=== PATIENT | female | born 1990 | race Caucasian/White ===

== ENCOUNTER 2016-04-17 22:23 | Emergency (ER) | payer OTHER ==
[~2016-04-17] VITALS: Ht 167.6 cm; Wt 64.7 kg
[2016-04-17] MEDS ORDERED: ONDANSETRON 4MG/2ML VIAL (J2405) As Ordered ONE (23:43)
[2016-04-17] MEDS ORDERED: MORPHINE 4 MG/ML 1ML SYRINGE As Ordered ONE (23:43)
[2016-04-17 23:57] LABS: BASO # 0.1 K/mm3 (0.0-0.2); BASO % 1.2 % (0.0-1.0); EOS # 0.1 K/mm3 (0.0-0.50); EOS % 1.4 % (0.0-3.0); LARGE UNSTAINED CELL # 0.1 K/mm3 (0.0-0.4); LARGE UNSTAINED CELL % 1.9 % (0.0-4.0); LYMPH # 3.1 K/mm3 (1.5-6.5); LYMPH % 40.7 % (24.0-44.0); MEAN CORPUSCULAR HEMOGLOBIN 30.2 pg (27.0-33.0); MEAN CORPUSCULAR HGB CONC 34.8 g/dl (32.0-36.5); MEAN CORPUSCULAR VOLUME 86.7 fl (80.0-96.0); MONO # 0.2 K/mm3 (0.0-0.8); NEUTROPHILS # 3.8 K/mm3 (1.8-7.7); NEUTROPHILS % 51.9 % (36.0-66.0); PLATELET COUNT, AUTOMATED 359 k/mm3 (150-450); RED CELL DISTRIBUTION WIDTH 12.6 % (11.5-14.5); WHITE BLOOD COUNT 7.4 K/mm3 (4.0-10.0)
[2016-04-18 00:22] LABS: ALBUMIN 4.1 GM/DL (3.2-5.2); ALBUMIN/GLOBULIN RATIO 1.17 (1.00-1.93); ALKALINE PHOSPHATASE 74 U/L (45-117); ALT/SGPT 41 U/L (12-78); ANION GAP 9 MEQ/L (8-16); AST/SGOT 63 U/L (15-37); BILIRUBIN,DIRECT < 0.1 MG/DL (0.0-0.2); BILIRUBIN,TOTAL 0.2 MG/DL (0.2-1.0); BLOOD UREA NITROGEN 10 MG/DL (7-18); CALCIUM LEVEL 8.1 MG/DL (8.5-10.1); CARBON DIOXIDE LEVEL 26 MEQ/L (21-32); CHLORIDE LEVEL 106 MEQ/L (98-107); CREATININE FOR GFR 0.86 MG/DL (0.55-1.02); GLOMERULAR FILTRATION RATE > 60.0 (>60); GLUCOSE, FASTING 95 MG/DL (70-105); SODIUM LEVEL 141 MEQ/L (136-145); TOTAL PROTEIN 7.6 GM/DL (6.4-8.2)
[2016-04-18] MEDS ORDERED: diphenhydrAMINE INJ 50MG/ML VIAL (J1200) As Ordered ONE (00:30)
[2016-04-18] MEDS ORDERED: MORPHINE 2 MG/ML 1ML SYRINGE As Ordered ONE (00:30)
--- NOTE | 2016-04-18 01:20 | REPUSA ---
Clinical statement: Pain. Findings: The liver demonstrates uniform echotexture and echogenicity, with no mass lesions. The gall bladder is unremarkable. The common bile duct measures 4 mm and is within normal limits. The pancreas demonstrates normal contour and appearance. The spleen is unremarkable. The right kidney measures 9. 6 cm in length and the left kidney measures 11.6 cm in length. There is no evidence of hydronephrosis or nephrolithiasis. The visualized portions of the aorta and inferior vena cava are within normal li mits. No ascites are seen. Impression: Unremarkable ultrasound examination of the abdomen.
[2016-04-18] MEDS ORDERED: METOCLOPRAMIDE INJ 10MG/2ML VIAL (J2765) As Ordered ONE (02:12)
[2016-04-18] MEDS ORDERED: LOVE1INJ2 SC (02:32)
[2016-04-18] MEDS ORDERED: PREN1TAB14 PO (02:32)
[2016-04-18] MEDS ORDERED: GI COCKTAIL 50ML BTL(HYOSCYAMINE/MAALOX/LIDOCAINE VISCOUS)(1:3:1) As Ordered ONE (02:40)
--- NOTE | 2016-04-18 03:21 | EDDOCDS ---
Physician Documentation [facility] Name: Nuria Licea Age: 26 yrs Sex: Female : 1990 Arrival Date: 04/17/2016 Time: 22:23 Bed I4 / M4 Private MD: Amber Bliss Disposition: 04/18/16 02:15 Hospitalization ordered by Damian Morales for Observation. Preliminary diagnosis are Abdominal and pelvic pain - epigastric, Nausea and vomiting, Rhabdomyolysis. - Bed requested for Shanna Post/Ante . - Status is Observation. cp1 - Condition is Stable. - Problem is new. - Symptoms are unchanged. Historical: - Allergies: SULFA (SULFONAMIDES) (Hives); Zithromax; - Home Meds: 1. Lovenox 30 mg/0.3 mL Sub-Q syrg once daily 2. Oral 1 tablet daily - PMHx: Anxiety; - PSHx: none; - Social history: Smoking status: Patient states former smoker of tobacco. No barriers to communication noted, The patient speaks fluent Japanese. - Family history: Not pertinent. - : The pt / caregiver states he / she is on anticoagulants: Lovenox. Home medication list is obtained from the patient. - Exposure Risk Screening:: None identified. 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 6 in. (167.64 cm) (R); Pain 9/10; 04/18 00:26 BP 135 / 66; Pulse 108; Resp 22; Temp 100.7(T); Pulse Ox 97% on R/A; Pain 10/10; cp1 01:39 BP 118 / 74; Pulse 104; Resp 18; Temp 98.8(O); Pulse Ox 98% on R/A; ld5 02:49 BP 107 / 59; Pulse 99; Resp 16; Temp 99(O); Pulse Ox 97% on R/A; Pain 7/10; ld5 04/17 22:26 Body Mass Index 23.02 (64.68 kg, 167.64 cm) kb5 MDM: 04/17 23:36 Ondansetron 4 mg IVP once ordered. cc10 23:36 IV Saline Lock ordered. cc10 23:36 Undress patient appropriately for examination ordered. cc10 23:36 morphine 4 mg IVP once ordered. cc10 23:37 Basic Metabolic Profile Ordered. EDMS 23:37 CBC with Diff Ordered. EDMS 23:37 Cardiac Injury Profile Ordered. EDMS 23:37 Lipase Ordered. EDMS 23:37 Liver Profile Ordered. EDMS 23:37 Troponin Ordered. EDMS 23:37 Urinalysis Ordered. EDMS 23:37 Hcg, Serum Quantitative Ordered. EDMS 23:37 Urine Culture Ordered. EDMS 23:38 NOTHING BY MOUTH+DIET ordered. EDMS 23:49 Financial registration complete. zo 23:50 [facility] [place] Payment Agreement was scanned into [employer] and attached to record. zo 04/18 00:18 Vital Signs ordered. cc10 00:18 CBC with Diff Reviewed. cc10 00:23 diphenhydrAMINE 25 mg IVP once ordered. cc10 00:24 morphine 2 mg IVP once ordered. cc10 00:26 US Abd complete Ordered. EDMS 01:03 Basic Metabolic Profile Reviewed. cc10 01:03 Cardiac Injury Profile Reviewed. cc10 01:03 Liver Profile Reviewed. cc10 01:03 Urinalysis Reviewed. cc10 01:03 Lipase Reviewed. cc10 01:03 Troponin Reviewed. cc10 01:03 Hcg, Serum Quantitative Reviewed. cc10 01:30 NS 0.9% 1000 ml IV at bolus once ordered. cc10 01:31 US Abd complete Reviewed. cc10 01:32 Vital Signs ordered. cc10 02:10 Metoclopramide 10 mg IV at 40 mg/hr once over 15 mins ordered. cc10 02:10 GI Cocktail - (Alum-Mag Hydroxide-Simeth 30 ml, Lidocaine 10 ml, Hyoscyamine 10 ml) PO cc10 once; Pre-mixed 50mL unit dose ordered. 02:17 BED REQUEST+ADM ordered. EDMS 02:32 MRI Screening Tool - Place on chart, inform RN ordered. cc10 02:41 Consents was scanned into [employer] and attached to record. cp1 02:44 MRI Screening Tool - Place on chart, inform RN complete. ld5 Administered Medications: 04/17 23:58 Drug: morphine 4 mg Route: IVP; Site: right antecubital; [facility] 23:59 Drug: Ondansetron 4 mg Route: IVP; Site: right antecubital; [facility] 04/18 00:36 Drug: diphenhydrAMINE 25 mg [diphenhydramine 50 mg/mL injection solution (0.5 mL)] [facility] Route: IVP; Site: left antecubital; 01:17 Follow up: Response: Pain is decreased [facility] 00:36 Drug: morphine 2 mg Route: IVP; Site: left antecubital; [facility] 01:17 Follow up: Response: Pain is decreased [facility] 01:39 Follow up: BP 118 / 74; Pulse 104 bpm; Resp 18 bpm; Temp 98.8 Oral; Pulse Ox 98% RA; ld5 Response: Confirmed pt not driving.; Pain is decreased 01:39 Drug: NS 0.9% 1000 ml [sodium chloride 0.9 % intravenous solution] Route: IV; Rate: ld5 bolus; Site: left antecubital; 02:58 Follow up: IV Status: Completed infusion; IV Intake: 1000ml ld5 02:16 Drug: Metoclopramide 10 mg [metoclopramide 5 mg/mL injection solution] Route: IV; Rate: ld5 40 mg/hr; Infused Over: 15 mins; Site: left antecubital; 02:44 Follow up: IV Status: Completed infusion ld5 02:44 Drug: GI Cocktail - (Alum-Mag Hydroxide-Simeth Suspension 225 mg-200 mg-25 mg/5 mL 30 ld5 ml, Lidocaine Liquid 2 % 10 ml, Hyoscyamine Liquid 10 ml) Route: PO; Signatures: Dispatcher [employer] Jess Gonzalez RN RN jan Peters, Mary, RN RN mcp Olin, Zoeann zo Perkins, Cheryl, LPN LPN cp1 Vidya Lim RN RN ld5 Suzi Tejeda RN RN [facility] Deyvi Tejeda, PA-C PAFreddieC cc10 The chart was reviewed and I authenticate all verbal orders and agree with the evaluation and treatment provided.Attachments: 04/17 23:50 [facility] Payment Agreement zo [email or web address]
--- NOTE | 2016-04-18 03:22 | EDDOCDS ---
Nurse's Notes [facility] Name: Nuria Licea Age: 26 yrs Sex: Female : 1990 Arrival Date: 04/17/2016 Time: 22:23 Bed I4 / M4 Private MD: Amber Bliss Diagnosis: Abdominal and pelvic pain-epigastric;Nausea and vomiting;Rhabdomyolysis Presentation: 04/17 22:33 Presenting complaint: Patient states: Upper abdominal pain for last 4 hours--has been mcp getting worse. Pt is 9 weeks . Risk factors: the patient reports no vaginal bleeding. Adult Sepsis Screening: The patient does not have new or worsening altered mentation. Patient's respiratory rate is less than 22. Systolic blood pressure is greater than 100. Patient has a qSOFA score of 0- Negative Sepsis Screen. Suicide/Homicide risk assessment- the patient denies having any suicidal and/or homicidal ideations and does not present with any other emotional, behavioral or mental health complaints. Status: The patient is a dependent. Transition of care: patient was not received from another setting of care. 22:33 Acuity: ALEKSANDR Level 3 [facility] 22:33 Method Of Arrival: Walkin/Carried/Asstd [facility] Triage Assessment: 22:35 General: Appears uncomfortable, Behavior is anxious, cooperative. Pain: Location: right mcp upper quadrant and left upper quadrant Pain currently is 9 out of 10 on a pain scale. HIV screening NA for this visit Offered previously. Neurological: No deficits noted. Respiratory: Airway is patent Respiratory effort is even, unlabored. GI: Reports upper abd pain, nausea, vomiting. Derm: Skin is pink, warm & dry. 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 Lovenox 30 mg/0.3 mL Sub-Q syrg once daily 2. Oral 1 tablet daily - PMHx: Anxiety; - PSHx: none; - Social history: Smoking status: Patient states former smoker of tobacco. No barriers to communication noted, The patient speaks fluent Sinhala. - Family history: Not pertinent. - : The pt / caregiver states he / she is on anticoagulants: Lovenox. Home medication list is obtained from the patient. - Exposure Risk Screening:: None identified. Screenin:36 Screening information is obtained from the patient. Fall risk: No risks identified. [facility] Assistance ADL's: requires no assistance with activities of daily living. Abuse/DV Screen: The patient / caregiver reports he/she is: not in a situation that causes fear, pain or injury. Nutritional screening: No deficits noted. Advance Directives: There is no active DNR order. home support is adequate. Assessment: 00:36 General: Appears uncomfortable, Behavior is crying. Pain: Location: epigastric area [facility] Pain currently is 10 out of 10 on a pain scale. Respiratory: Airway is patent Respiratory effort is even, unlabored, Respiratory pattern is regular, symmetrical. GI: Abdomen is non- distended Bowel sounds present X 4 quads. Abd is non tender X 4 quads. Derm: Skin is pink, warm & dry. 01:39 General: In to assess pt. Pt sleeping. Pt woken up to obtain vitals and start bolus. Pt ld5 started moaning and reports 8/10 pain. Provider made aware. 02:07 General: Dr. Morales in to assess pt. ld5 02:16 General: Pt dry heaving. Reglan infusion started. GI cocktail held until nausea has ld5 decreased. SO at bedside. Ice pack provided per request. Will continue to monitor. 02:44 General: Pt reports decreased nausea. Pt medicated with GI cocktail. Will monitor to ld5 assess pain level and tolerance. Pt aware of plan for admission. Will continue to monitor. Vital Signs: 04/17 22:26 BP 167 / 95; Pulse 135; Resp 24; Temp 97.1(O); Pulse Ox 99% on R/A; Weight 64.68 kg kb5 (M); Height 5 ft. 6 in. (167.64 cm) (R); Pain 9/10; 04/18 00:26 BP 135 / 66; Pulse 108; Resp 22; Temp 100.7(T); Pulse Ox 97% on R/A; Pain 10/10; cp1 01:39 BP 118 / 74; Pulse 104; Resp 18; Temp 98.8(O); Pulse Ox 98% on R/A; ld5 02:49 BP 107 / 59; Pulse 99; Resp 16; Temp 99(O); Pulse Ox 97% on R/A; Pain 7/10; ld5 04/17 22:26 Body Mass Index 23.02 (64.68 kg, 167.64 cm) kb5 ED Course: 04/17 22:26 Patient visited by Elia Stauffer PCA. kb5 22:26 Amber Bliss is Private Physician. kb5 22:26 Patient moved to Waiting kb5 22:29 Patient visited by Elia Stauffer PCA. kb5 22:34 Triage Initiated mcp 22:36 Patient visited by Nuria Morrison RN. mcp 22:36 Patient moved to Pre RCE mcp 23:14 Patient moved to Triage 1 cz 23:32 Deyvi Tejeda [facility] is [facility]. cc10 23:32 Mayank Eduardo DO is Attending Physician. cc10 23:32 Patient visited by Deyvi Tejeda PA-C. cc10 23:32 Patient visited by Deyvi Tejeda PA-C. cc10 23:35 Patient moved to I4 / M4 cz 23:50 [facility] Payment Agreement was scanned into [employer] and attached to record. zo 23:52 Inserted saline lock: 20 gauge in left antecubital area and blood collected. The rw1 patient tolerated the procedure well. 04/18 00:22 Patient visited by Josselyn Langston LPN. cp1 00:26 Urinalysis Sent. cp1 00:26 Urine Culture Sent. cp1 00:36 The patient / caregiver is instructed regarding the plan of care and ED course. [facility] Accompanied by Significant Other, Patient has correct armband on for positive identification. Placed in gown. Bed in low position. Call light in reach. Side rails up X 1. Cardiac monitoring not applicable on this patient. 00:46 Patient visited by Josselyn Langston LPN. cp1 01:17 Patient visited by Josselyn Langston LPN. cp1 01:28 US Abd complete Returned. EDMS 01:41 Patient visited by Vidya Lim RN. ld5 01:58 Patient visited by Josselyn Langston LPN. cp1 02:08 Patient visited by Vidya Lim RN. ld5 02:15 Damian Morales MD is Hospitalizing Provider. cc10 02:18 Patient visited by Vidya Lim RN. ld5 02:41 Consents was scanned into [employer] and attached to record. cp1 02:46 Patient visited by Vidya Lim RN. ld5 02:59 Patient visited by Vidya Lim RN. ld5 03:00 No procedures done that require assistance. cp1 Administered Medications: 04/17 23:58 Drug: morphine 4 mg Route: IVP; Site: right antecubital; [facility] 23:59 Drug: Ondansetron 4 mg Route: IVP; Site: right antecubital; [facility] 04/18 00:36 Drug: diphenhydrAMINE 25 mg [diphenhydramine 50 mg/mL injection solution (0.5 mL)] [facility] Route: IVP; Site: left antecubital; 01:17 Follow up: Response: Pain is decreased [facility] 00:36 Drug: morphine 2 mg Route: IVP; Site: left antecubital; [facility] 01:17 Follow up: Response: Pain is decreased [facility] 01:39 Follow up: BP 118 / 74; Pulse 104 bpm; Resp 18 bpm; Temp 98.8 Oral; Pulse Ox 98% RA; ld5 Response: Confirmed pt not driving.; Pain is decreased 01:39 Drug: NS 0.9% 1000 ml [sodium chloride 0.9 % intravenous solution] Route: IV; Rate: ld5 bolus; Site: left antecubital; 02:58 Follow up: IV Status: Completed infusion; IV Intake: 1000ml ld5 02:16 Drug: Metoclopramide 10 mg [metoclopramide 5 mg/mL injection solution] Route: IV; Rate: ld5 40 mg/hr; Infused Over: 15 mins; Site: left antecubital; 02:44 Follow up: IV Status: Completed infusion ld5 02:44 Drug: GI Cocktail - (Alum-Mag Hydroxide-Simeth Suspension 225 mg-200 mg-25 mg/5 mL 30 ld5 ml, Lidocaine Liquid 2 % 10 ml, Hyoscyamine Liquid 10 ml) Route: PO; Attachments: 04/18 02:41 Consents cp1 Intake: 02:58 IV: 1000.00ml; Total: 1000.00ml. ld5 Order Results: Lab Order: Basic Metabolic Profile; SPEC'M 04/17/16 23:50 Test: GLUCOSE, FASTING; Value: 95; Range: 70-105; Units: MG/DL; Status: F Test: BLOOD UREA NITROGEN; Value: 10; Range: 7-18; Units: MG/DL; Status: F Test: CREATININE FOR GFR; Value: 0.86; Range: 0.55-1.02; Units: MG/DL; Status: F Test: GLOMERULAR FILTRATION RATE; Value: > 60.0; Range: >60; Status: F Test: SODIUM LEVEL; Value: 141; Range: 136-145; Units: MEQ/L; Status: F Test: POTASSIUM SERUM; Value: 4.0; Range: 3.5-5.1; Units: MEQ/L; Status: F Test: CHLORIDE LEVEL; Value: 106; Range: 98-107; Units: MEQ/L; Status: F Test: CARBON DIOXIDE LEVEL; Value: 26; Range: 21-32; Units: MEQ/L; Status: F Test: ANION GAP; Value: 9; Range: 8-16; Units: MEQ/L; Status: F Test: CALCIUM LEVEL; Value: 8.1; Range: 8.5-10.1; Abnormal: Below low normal; Units: MG/DL; Status: F Test Note: ; Units are mL/min/1.73 m2 Chronic Kidney Disease Staging per NKF: Stage I & II GFR >=60 Normal to Mildly Decreased Stage III GFR 30-59 Moderately Decreased Stage IV GFR 15-29 Severely Decreased Stage V GFR <15 Very Little GFR Left ESRD GFR <15 on [employer]ENDANT Lab Order: CBC with Diff; SPEC'M 04/17/16 23:50 Test: WHITE BLOOD COUNT; Value: 7.4; Range: 4.0-10.0; Units: K/mm3; Status: F Test: RED BLOOD COUNT; Value: 4.46; Range: 4.00-5.40; Units: M/mm3; Status: F Test: HEMOGLOBIN; Value: 13.5; Range: 12.0-16.0; Units: g/dl; Status: F Test: HEMATOCRIT; Value: 38.7; Range: 36.0-47.0; Units: %; Status: F Test: MEAN CORPUSCULAR VOLUME; Value: 86.7; Range: 80.0-96.0; Units: fl; Status: F Test: MEAN CORPUSCULAR HEMOGLOBIN; Value: 30.2; Range: 27.0-33.0; Units: pg; Status: F Test: MEAN CORPUSCULAR HGB CONC; Value: 34.8; Range: 32.0-36.5; Units: g/dl; Status: F Test: RED CELL DISTRIBUTION WIDTH; Value: 12.6; Range: 11.5-14.5; Units: %; Status: F Test: PLATELET COUNT, AUTOMATED; Value: 359; Range: 150-450; Units: k/mm3; Status: F Test: NEUTROPHILS %; Value: 51.9; Range: 36.0-66.0; Units: %; Status: F Test: LYMPH %; Value: 40.7; Range: 24.0-44.0; Units: %; Status: F Test: MONO %; Value: 3.0; Range: 0.0-5.0; Units: %; Status: F Test: EOS %; Value: 1.4; Range: 0.0-3.0; Units: %; Status: F Test: BASO %; Value: 1.2; Range: 0.0-1.0; Abnormal: Above high normal; Units: %; Status: F Test: LARGE UNSTAINED CELL %; Value: 1.9; Range: 0.0-4.0; Units: %; Status: F Test: NEUTROPHILS #; Value: 3.8; Range: 1.8-7.7; Units: K/mm3; Status: F Test: LYMPH #; Value: 3.1; Range: 1.5-6.5; Units: K/mm3; Status: F Test: MONO #; Value: 0.2; Range: 0.0-0.8; Units: K/mm3; Status: F Test: EOS #; Value: 0.1; Range: 0.0-0.50; Units: K/mm3; Status: F Test: BASO #; Value: 0.1; Range: 0.0-0.2; Units: K/mm3; Status: F Test: LARGE UNSTAINED CELL #; Value: 0.1; Range: 0.0-0.4; Units: K/mm3; Status: F Lab Order: Cardiac Injury Profile; [facility]04/17[facility]16 23:50 Test: CPK CREATINE PHOSPHOKINASE; Value: 593; Range: 26-192; Abnormal: Above high normal; Units: U/L; Status: F Test: CK-MB VALUE MASS; Value: 1.1; Range: 0.0-3.6; Units: NG/ML; Status: F Test: MB/CK RELATIVE INDEX; Value: 0.18; Range: < OR =4; Status: F Test Note: ; DIAGNOSIS CRITERIA MMB ng/ml Relative Index (RI) NON-AMI < or = 5 N/A KULKARNI ZONE > 5 < or = 4 AMI > 5 > 4 Lab Order: Lipase; 04/17/16 23:50 Test: LIPASE; Value: 174; Range: 73-393; Units: U/L; Status: F Lab Order: Liver Profile; 04/17/16 23:50 Test: AST/SGOT; Value: 63; Range: 15-37; Abnormal: Above high normal; Units: U/L; Status: F Test: ALT/SGPT; Value: 41; Range: 12-78; Units: U/L; Status: F Test: ALKALINE PHOSPHATASE; Value: 74; Range: 45-117; Units: U/L; Status: F Test: BILIRUBIN,TOTAL; Value: 0.2; Range: 0.2-1.0; Units: MG/DL; Status: F Test: BILIRUBIN,DIRECT; Value: < 0.1; Range: 0.0-0.2; Units: MG/DL; Status: F Test: TOTAL PROTEIN; Value: 7.6; Range: 6.4-8.2; Units: GM/DL; Status: F Test: ALBUMIN; Value: 4.1; Range: 3.2-5.2; Units: GM/DL; Status: F Test: ALBUMIN/GLOBULIN RATIO; Value: 1.17; Range: 1.00-1.93; Status: F Lab Order: Troponin; 04/17/16 23:50 Test: TROPONIN I; Value: < 0.02; Range: < 0.10; Units: NG/ML; Status: F Test Note: ; Troponin I Reference Interval for [employer] LOCI: 99th Percentile= 0.00-0.045 ng/ml Risk Stratification: <= 0.10 ng/ml Decreased Risk for Adverse Clinical Events. 0.10-1.50 ng/ml Increased Risk for Adverse Clinical Events. Evaluation of additional criterion and/or repeat testing in 2-6 hours is suggested to rule out myocardial damage. >= 1.50 ng/ml Indicative of Myocardial Injury. Lab Order: Urinalysis; SPEC'M 04/18/16 00:26 Test: APPEARANCE, URINE; Value: CLEAR; Range: CLEAR; Status: F Test: COLOR, URINE; Value: STRAW; Range: YELLOW; Status: F Test: PH,URINE; Value: 7.0; Range: 5.0-9.0; Units: UNITS; Status: F Test: SPECIFIC GRAVITY URINE AUTO; Value: 1.005; Range: 1.002-1.035; Status: F Test: PROTEIN, URINE AUTO; Value: NEGATIVE; Range: NEGATIVE; Units: mg/dL; Status: F Test: GLUCOSE, URINE (UA) AUTO; Value: NEGATIVE; Range: NEGATIVE; Units: mg/dL; Status: F Test: KETONE, URINE AUTO; Value: NEGATIVE; Range: NEGATIVE; Units: mg/dL; Status: F Test: UROBILINOGEN, URINE AUTO; Value: 0.2; Range: 0.0-2.0; Units: mg/dL; Status: F Test: BILIRUBIN, URINE AUTO; Value: NEGATIVE; Range: NEGATIVE; Status: F Test: NITRITE, URINE AUTO; Value: NEGATIVE; Range: NEGATIVE; Status: F Test: LEUKOCYTE ESTERASE, URINE AUTO; Value: NEGATIVE; Range: NEGATIVE; Status: F Test: BLOOD, URINE BLOOD; Value: 1+; Range: NEGATIVE; Abnormal: Above high normal; Status: F Test: WBC, URINE AUTO; Value: 1; Range: 0-3; Units: /HPF; Status: F Test: RBC, URINE AUTO; Value: 3; Range: 0-3; Units: /HPF; Status: F Test: BACTERIA, URINE AUTO; Value: 1+; Range: NEGATIVE; Abnormal: Above high normal; Status: F Test: SQUAMOUS EPITHELIAL CELL UR AU; Value: 0; Range: 0-6; Units: /HPF; Status: F Test: MUCUS, URINE; Value: SMALL; Range: NEGATIVE; Status: F Test: HYALINE CAST, URINE AUTO; Value: 0; Range: 0-1; Units: /LPF; Status: F Lab Order: Hcg, Serum Quantitative; SPEC'M 04/17/16 23:50 Test: HCG, SERUM QUANTITATIVE; Value: 07281; Units: MIU/ML; Status: F Test Note: ; GESTATIONAL AGE APPROXIMATE HCG RANGE (MIU/ML) 0.2-1 WEEK 5-50 1-2 WEEKS 50-500 2-3 WEEKS 100-5,000 3-4 WEEKS 500-10,000 4-5 WEEKS 1,000-50,000 5-6 WEEKS 10,000-100,000 6-8 WEEKS 15,000-200,000 2-3 MONTHS 10,000-100,000 NON FEMALES LESS THAN 3.0 Patient samples may contain human heterophilic antibodies that could react with immunoassays to give falsely elevated or depressed results. This assay has been designed to minimize interference from heterophilic antibodies. Elevated hCG levels have also been associated with trophoblastic disease and nontrophoblastic neoplasms. The possibility of having these diseases should be considered before a diagnosis of is made. This test is not intended for use as a surrogate marker for aiding in the diagnosis or monitoring the treatment of cancer patients. [employer] [place] methodology. Radiology Order: US Abd complete Test: US Abd complete REASON FOR EXAMINATION: ;Abd. Pain - Generalized, Nn-focal Exam; ; Clinical statement: Pain.; Findings: The liver demonstrates uniform echotexture and echogenicity, with no mass lesions. The gall; bladder is unremarkable. The common bile duct measures 4 mm and is within normal limits. The pancreas; demonstrates normal contour and appearance. The spleen is unremarkable. The right kidney measures 9.; 6 cm in length and the left kidney measures 11.6 cm in length. There is no evidence of hydronephrosis; or nephrolithiasis. The visualized portions of the aorta and inferior vena cava are within normal li; mits. No ascites are seen.; Impression: Unremarkable ultrasound examination of the abdomen.; ; Outcome: 00:36 Ultrasound Study completed. [facility] 02:15 Decision to Hospitalize by Provider. cc10 03:00 Discharge Assessment: Patient awake, alert and oriented x 3. No cognitive and/or cp1 functional deficits noted. Patient verbalized understanding of disposition instructions. patient administered narcotics - yes. Patient was admitted to the hospital or transferred to another facility. The following High Risk Discharge criteria are identified: None. Admitted to L & D, accompanied by tech, with chart. Condition: stable. Property :Personal belongings accompany Pt. 03:21 Patient left the ED. cp1 Signatures: Dispatcher [employer] EDMS Nuria Morrison RN Alvarez Vera mcp, RN RN cz Bob Davis,SPEECH THERAPY TEACHER SPEECH THERAPY TEACHER rw1 Albina Sunshine Kristopher, JONO INSURANCE POLICY CLERK kb5 Josselyn Langston,SPEECH THERAPY TEACHER SPEECH THERAPY TEACHER cp1 Vidya LimRN BRENT ld5 Suzi TejedaRN BRENT [facility] Deyvi Tejeda, PA-C PA-C cc10 Corrections: (The following items were deleted from the chart) 04/17 22:35 22:33 Presenting complaint: Patient states: Upper abdominal pain for last 4 hours--has mcp been getting worse mcp MTDD
--- NOTE | 2016-04-21 10:30 | EDDOCDS ---
Nurse's Notes [facility] Name: Nuria Licea Age: 26 yrs Sex: Female : 1990 Arrival Date: 04/17/2016 Time: 22:23 Bed I4 / M4 Private MD: Amber Bliss Diagnosis: Abdominal and pelvic pain-epigastric;Nausea and vomiting;Rhabdomyolysis Presentation: 04/17 22:33 Presenting complaint: Patient states: Upper abdominal pain for last 4 hours--has been mcp getting worse. Pt is 9 weeks . Risk factors: the patient reports no vaginal bleeding. Adult Sepsis Screening: The patient does not have new or worsening altered mentation. Patient's respiratory rate is less than 22. Systolic blood pressure is greater than 100. Patient has a qSOFA score of 0- Negative Sepsis Screen. Suicide/Homicide risk assessment- the patient denies having any suicidal and/or homicidal ideations and does not present with any other emotional, behavioral or mental health complaints. Status: The patient is a dependent. Transition of care: patient was not received from another setting of care. 22:33 Acuity: ALEKSANDR Level 3 [facility] 22:33 Method Of Arrival: Walkin/Carried/Asstd [facility] Triage Assessment: 22:35 General: Appears uncomfortable, Behavior is anxious, cooperative. Pain: Location: right mcp upper quadrant and left upper quadrant Pain currently is 9 out of 10 on a pain scale. HIV screening NA for this visit Offered previously. Neurological: No deficits noted. Respiratory: Airway is patent Respiratory effort is even, unlabored. GI: Reports upper abd pain, nausea, vomiting. Derm: Skin is pink, warm & dry. 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 Lovenox 30 mg/0.3 mL Sub-Q syrg once daily 2. Oral 1 tablet daily - PMHx: Anxiety; - PSHx: none; - Social history: Smoking status: Patient states former smoker of tobacco. No barriers to communication noted, The patient speaks fluent Belarusian. - Family history: Not pertinent. - : The pt / caregiver states he / she is on anticoagulants: Lovenox. Home medication list is obtained from the patient. - Exposure Risk Screening:: None identified. Screenin:36 Screening information is obtained from the patient. Fall risk: No risks identified. [facility] Assistance ADL's: requires no assistance with activities of daily living. Abuse/DV Screen: The patient / caregiver reports he/she is: not in a situation that causes fear, pain or injury. Nutritional screening: No deficits noted. Advance Directives: There is no active DNR order. home support is adequate. Assessment: 00:36 General: Appears uncomfortable, Behavior is crying. Pain: Location: epigastric area [facility] Pain currently is 10 out of 10 on a pain scale. Respiratory: Airway is patent Respiratory effort is even, unlabored, Respiratory pattern is regular, symmetrical. GI: Abdomen is non- distended Bowel sounds present X 4 quads. Abd is non tender X 4 quads. Derm: Skin is pink, warm & dry. 01:39 General: In to assess pt. Pt sleeping. Pt woken up to obtain vitals and start bolus. Pt ld5 started moaning and reports 8/10 pain. Provider made aware. 02:07 General: Dr. Morales in to assess pt. ld5 02:16 General: Pt dry heaving. Reglan infusion started. GI cocktail held until nausea has ld5 decreased. SO at bedside. Ice pack provided per request. Will continue to monitor. 02:44 General: Pt reports decreased nausea. Pt medicated with GI cocktail. Will monitor to ld5 assess pain level and tolerance. Pt aware of plan for admission. Will continue to monitor. Vital Signs: 04/17 22:26 BP 167 / 95; Pulse 135; Resp 24; Temp 97.1(O); Pulse Ox 99% on R/A; Weight 64.68 kg kb5 (M); Height 5 ft. 6 in. (167.64 cm) (R); Pain 9/10; 04/18 00:26 BP 135 / 66; Pulse 108; Resp 22; Temp 100.7(T); Pulse Ox 97% on R/A; Pain 10/10; cp1 01:39 BP 118 / 74; Pulse 104; Resp 18; Temp 98.8(O); Pulse Ox 98% on R/A; ld5 02:49 BP 107 / 59; Pulse 99; Resp 16; Temp 99(O); Pulse Ox 97% on R/A; Pain 7/10; ld5 04/17 22:26 Body Mass Index 23.02 (64.68 kg, 167.64 cm) kb5 ED Course: 04/17 22:26 Patient visited by Elia Stauffer PCA. kb5 22:26 Amber Bliss is Private Physician. kb5 22:26 Patient moved to Waiting kb5 22:29 Patient visited by Elia Stauffer PCA. kb5 22:34 Triage Initiated mcp 22:36 Patient visited by Nuria Morrison RN. mcp 22:36 Patient moved to Pre RCE mcp 23:14 Patient moved to Triage 1 cz 23:32 [facility] cc10 23:32 Mayank Eduardo DO is Attending Physician. cc10 23:32 Patient visited by Deyvi Tejeda PA-C. cc10 23:32 Patient visited by Deyvi Tejeda PA-C. cc10 23:35 Patient moved to I4 / M4 cz 23:50 [facility] Payment Agreement was scanned into i[employer] and attached to record. zo 23:52 Inserted saline lock: 20 gauge in left antecubital area and blood collected. The rw1 patient tolerated the procedure well. 04/18 00:22 Patient visited by Josselyn Langston LPN. cp1 00:26 Urinalysis Sent. cp1 00:26 Urine Culture Sent. cp1 00:36 The patient / caregiver is instructed regarding the plan of care and ED course. [facility] Accompanied by Significant Other, Patient has correct armband on for positive identification. Placed in gown. Bed in low position. Call light in reach. Side rails up X 1. Cardiac monitoring not applicable on this patient. 00:46 Patient visited by Jsoselyn Langston LPN. cp1 01:17 Patient visited by Josselyn Langston LPN. cp1 01:28 US Abd complete Returned. EDMS 01:41 Patient visited by Vidya Lim RN. ld5 01:58 Patient visited by Josselyn Langston LPN. cp1 02:08 Patient visited by Vidya Lim RN. ld5 02:15 Damian Morales MD is Hospitalizing Provider. cc10 02:18 Patient visited by Vidya Lim RN. ld5 02:41 Consents was scanned into [employer] and attached to record. cp1 02:46 Patient visited by Vidya Lim RN. ld5 02:59 Patient visited by Vidya Lim RN. ld5 03:00 No procedures done that require assistance. cp1 09:00 T-Sheet-- Draft Copy was scanned into [employer] and attached to record. gb Administered Medications: 04/17 23:58 Drug: morphine 4 mg Route: IVP; Site: right antecubital; [facility] 23:59 Drug: Ondansetron 4 mg Route: IVP; Site: right antecubital; [facility] 04/18 00:36 Drug: diphenhydrAMINE 25 mg [diphenhydramine 50 mg/mL injection solution (0.5 mL)] [facility] Route: IVP; Site: left antecubital; 01:17 Follow up: Response: Pain is decreased 1 00:36 Drug: morphine 2 mg Route: IVP; Site: left antecubital; [facility] 01:17 Follow up: Response: Pain is decreased cp1 01:39 Follow up: BP 118 / 74; Pulse 104 bpm; Resp 18 bpm; Temp 98.8 Oral; Pulse Ox 98% RA; ld5 Response: Confirmed pt not driving.; Pain is decreased 01:39 Drug: NS 0.9% 1000 ml [sodium chloride 0.9 % intravenous solution] Route: IV; Rate: ld5 bolus; Site: left antecubital; 02:58 Follow up: IV Status: Completed infusion; IV Intake: 1000ml ld5 02:16 Drug: Metoclopramide 10 mg [metoclopramide 5 mg/mL injection solution] Route: IV; Rate: ld5 40 mg/hr; Infused Over: 15 mins; Site: left antecubital; 02:44 Follow up: IV Status: Completed infusion ld5 02:44 Drug: GI Cocktail - (Alum-Mag Hydroxide-Simeth Suspension 225 mg-200 mg-25 mg/5 mL 30 ld5 ml, Lidocaine Liquid 2 % 10 ml, Hyoscyamine Liquid 10 ml) Route: PO; Attachments: 04/18 02:41 Consents cp1 Intake: 02:58 IV: 1000.00ml; Total: 1000.00ml. ld5 Order Results: Lab Order: Basic Metabolic Profile; SPEC'M 04/17/16 23:50 Test: GLUCOSE, FASTING; Value: 95; Range: 70-105; Units: MG/DL; Status: F Test: BLOOD UREA NITROGEN; Value: 10; Range: 7-18; Units: MG/DL; Status: F Test: CREATININE FOR GFR; Value: 0.86; Range: 0.55-1.02; Units: MG/DL; Status: F Test: GLOMERULAR FILTRATION RATE; Value: > 60.0; Range: >60; Status: F Test: SODIUM LEVEL; Value: 141; Range: 136-145; Units: MEQ/L; Status: F Test: POTASSIUM SERUM; Value: 4.0; Range: 3.5-5.1; Units: MEQ/L; Status: F Test: CHLORIDE LEVEL; Value: 106; Range: 98-107; Units: MEQ/L; Status: F Test: CARBON DIOXIDE LEVEL; Value: 26; Range: 21-32; Units: MEQ/L; Status: F Test: ANION GAP; Value: 9; Range: 8-16; Units: MEQ/L; Status: F Test: CALCIUM LEVEL; Value: 8.1; Range: 8.5-10.1; Abnormal: Below low normal; Units: MG/DL; Status: F Test Note: ; Units are mL/min/1.73 m2 Chronic Kidney Disease Staging per NKF: Stage I & II GFR >=60 Normal to Mildly Decreased Stage III GFR 30-59 Moderately Decreased Stage IV GFR 15-29 Severely Decreased Stage V GFR <15 Very Little GFR Left ESRD GFR <15 on SOLID WASTE COLLECTOR Lab Order: CBC with Diff; SPEC'M 04/17/16 23:50 Test: WHITE BLOOD COUNT; Value: 7.4; Range: 4.0-10.0; Units: K/mm3; Status: F Test: RED BLOOD COUNT; Value: 4.46; Range: 4.00-5.40; Units: M/mm3; Status: F Test: HEMOGLOBIN; Value: 13.5; Range: 12.0-16.0; Units: g/dl; Status: F Test: HEMATOCRIT; Value: 38.7; Range: 36.0-47.0; Units: %; Status: F Test: MEAN CORPUSCULAR VOLUME; Value: 86.7; Range: 80.0-96.0; Units: fl; Status: F Test: MEAN CORPUSCULAR HEMOGLOBIN; Value: 30.2; Range: 27.0-33.0; Units: pg; Status: F Test: MEAN CORPUSCULAR HGB CONC; Value: 34.8; Range: 32.0-36.5; Units: g/dl; Status: F Test: RED CELL DISTRIBUTION WIDTH; Value: 12.6; Range: 11.5-14.5; Units: %; Status: F Test: PLATELET COUNT, AUTOMATED; Value: 359; Range: 150-450; Units: k/mm3; Status: F Test: NEUTROPHILS %; Value: 51.9; Range: 36.0-66.0; Units: %; Status: F Test: LYMPH %; Value: 40.7; Range: 24.0-44.0; Units: %; Status: F Test: MONO %; Value: 3.0; Range: 0.0-5.0; Units: %; Status: F Test: EOS %; Value: 1.4; Range: 0.0-3.0; Units: %; Status: F Test: BASO %; Value: 1.2; Range: 0.0-1.0; Abnormal: Above high normal; Units: %; Status: F Test: LARGE UNSTAINED CELL %; Value: 1.9; Range: 0.0-4.0; Units: %; Status: F Test: NEUTROPHILS #; Value: 3.8; Range: 1.8-7.7; Units: K/mm3; Status: F Test: LYMPH #; Value: 3.1; Range: 1.5-6.5; Units: K/mm3; Status: F Test: MONO #; Value: 0.2; Range: 0.0-0.8; Units: K/mm3; Status: F Test: EOS #; Value: 0.1; Range: 0.0-0.50; Units: K/mm3; Status: F Test: BASO #; Value: 0.1; Range: 0.0-0.2; Units: K/mm3; Status: F Test: LARGE UNSTAINED CELL #; Value: 0.1; Range: 0.0-0.4; Units: K/mm3; Status: F Lab Order: Cardiac Injury Profile; [facility] 04/17/16 23:50 Test: CPK CREATINE PHOSPHOKINASE; Value: 593; Range: 26-192; Abnormal: Above high normal; Units: U/L; Status: F Test: CK-MB VALUE MASS; Value: 1.1; Range: 0.0-3.6; Units: NG/ML; Status: F Test: MB/CK RELATIVE INDEX; Value: 0.18; Range: < OR =4; Status: F Test Note: ; DIAGNOSIS CRITERIA MMB ng/ml Relative Index (RI) NON-AMI < or = 5 N/A KULKARNI ZONE > 5 < or = 4 AMI > 5 > 4 Lab Order: Lipase; [facility] 04/17/16 23:50 Test: LIPASE; Value: 174; Range: 73-393; Units: U/L; Status: F Lab Order: Liver Profile; 04/17/16 23:50 Test: AST/SGOT; Value: 63; Range: 15-37; Abnormal: Above high normal; Units: U/L; Status: F Test: ALT/SGPT; Value: 41; Range: 12-78; Units: U/L; Status: F Test: ALKALINE PHOSPHATASE; Value: 74; Range: 45-117; Units: U/L; Status: F Test: BILIRUBIN,TOTAL; Value: 0.2; Range: 0.2-1.0; Units: MG/DL; Status: F Test: BILIRUBIN,DIRECT; Value: < 0.1; Range: 0.0-0.2; Units: MG/DL; Status: F Test: TOTAL PROTEIN; Value: 7.6; Range: 6.4-8.2; Units: GM/DL; Status: F Test: ALBUMIN; Value: 4.1; Range: 3.2-5.2; Units: GM/DL; Status: F Test: ALBUMIN/GLOBULIN RATIO; Value: 1.17; Range: 1.00-1.93; Status: F Lab Order: Troponin; [facility] 23:50 Test: TROPONIN I; Value: < 0.02; Range: < 0.10; Units: NG/ML; Status: F Test Note: ; Troponin I Reference Interval for [employer] LOCI: 99th Percentile= 0.00-0.045 ng/ml Risk Stratification: <= 0.10 ng/ml Decreased Risk for Adverse Clinical Events. 0.10-1.50 ng/ml Increased Risk for Adverse Clinical Events. Evaluation of additional criterion and/or repeat testing in 2-6 hours is suggested to rule out myocardial damage. >= 1.50 ng/ml Indicative of Myocardial Injury. Lab Order: Urinalysis; SPEC'M 04/18/16 00:26 Test: APPEARANCE, URINE; Value: CLEAR; Range: CLEAR; Status: F Test: COLOR, URINE; Value: STRAW; Range: YELLOW; Status: F Test: PH,URINE; Value: 7.0; Range: 5.0-9.0; Units: UNITS; Status: F Test: SPECIFIC GRAVITY URINE AUTO; Value: 1.005; Range: 1.002-1.035; Status: F Test: PROTEIN, URINE AUTO; Value: NEGATIVE; Range: NEGATIVE; Units: mg/dL; Status: F Test: GLUCOSE, URINE (UA) AUTO; Value: NEGATIVE; Range: NEGATIVE; Units: mg/dL; Status: F Test: KETONE, URINE AUTO; Value: NEGATIVE; Range: NEGATIVE; Units: mg/dL; Status: F Test: UROBILINOGEN, URINE AUTO; Value: 0.2; Range: 0.0-2.0; Units: mg/dL; Status: F Test: BILIRUBIN, URINE AUTO; Value: NEGATIVE; Range: NEGATIVE; Status: F Test: NITRITE, URINE AUTO; Value: NEGATIVE; Range: NEGATIVE; Status: F Test: LEUKOCYTE ESTERASE, URINE AUTO; Value: NEGATIVE; Range: NEGATIVE; Status: F Test: BLOOD, URINE BLOOD; Value: 1+; Range: NEGATIVE; Abnormal: Above high normal; Status: F Test: WBC, URINE AUTO; Value: 1; Range: 0-3; Units: /HPF; Status: F Test: RBC, URINE AUTO; Value: 3; Range: 0-3; Units: /HPF; Status: F Test: BACTERIA, URINE AUTO; Value: 1+; Range: NEGATIVE; Abnormal: Above high normal; Status: F Test: SQUAMOUS EPITHELIAL CELL UR AU; Value: 0; Range: 0-6; Units: /HPF; Status: F Test: MUCUS, URINE; Value: SMALL; Range: NEGATIVE; Status: F Test: HYALINE CAST, URINE AUTO; Value: 0; Range: 0-1; Units: /LPF; Status: F Lab Order: Urine Culture; SPEC'M 04/18/16 00:26 Test: URINE CULTURE; Value: URINE CULTURE RESULT NO GROWTH; Status: F Lab Order: Hcg, Serum Quantitative; SPEC'M 04/17/16 23:50 Test: HCG, SERUM QUANTITATIVE; Value: 93177; Units: MIU/ML; Status: F Test Note: ; GESTATIONAL AGE APPROXIMATE HCG RANGE (MIU/ML) 0.2-1 WEEK 5-50 1-2 WEEKS 50-500 2-3 WEEKS 100-5,000 3-4 WEEKS 500-10,000 4-5 WEEKS 1,000-50,000 5-6 WEEKS 10,000-100,000 6-8 WEEKS 15,000-200,000 2-3 MONTHS 10,000-100,000 NON FEMALES LESS THAN 3.0 Patient samples may contain human heterophilic antibodies that could react with immunoassays to give falsely elevated or depressed results. This assay has been designed to minimize interference from heterophilic antibodies. Elevated hCG levels have also been associated with trophoblastic disease and nontrophoblastic neoplasms. The possibility of having these diseases should be considered before a diagnosis of is made. This test is not intended for use as a surrogate marker for aiding in the diagnosis or monitoring the treatment of cancer patients. [employer] methodology. Radiology Order: US Abd complete Test: US Abd complete REASON FOR EXAMINATION: ;Abd. Pain - Generalized, Nn-focal Exam; ; Clinical statement: Pain.; Findings: The liver demonstrates uniform echotexture and echogenicity, with no mass lesions. The gall; bladder is unremarkable. The common bile duct measures 4 mm and is within normal limits. The pancreas; demonstrates normal contour and appearance. The spleen is unremarkable. The right kidney measures 9.; 6 cm in length and the left kidney measures 11.6 cm in length. There is no evidence of hydronephrosis; or nephrolithiasis. The visualized portions of the aorta and inferior vena cava are within normal li; mits. No ascites are seen.; Impression: Unremarkable ultrasound examination of the abdomen.; ; Outcome: 00:36 Ultrasound Study completed. [facility] 02:15 Decision to Hospitalize by Provider. cc10 03:00 Discharge Assessment: Patient awake, alert and oriented x 3. No cognitive and/or cp1 functional deficits noted. Patient verbalized understanding of disposition instructions. patient administered narcotics - yes. Patient was admitted to the hospital or transferred to another facility. The following High Risk Discharge criteria are identified: None. Admitted to L & D, accompanied by tech, with chart. Condition: stable. Property :Personal belongings accompany Pt. 03:21 Patient left the ED. cp1 Signatures: Dispatcher [employer] EDNuria Hernández RN Alvarez Vera mcp, RN RN cz Brooks, Tana, Reg Reg gb Bob Davis,CORPORATE COMMUNICATIONS ASSOCIATE CORPORATE COMMUNICATIONS ASSOCIATE rw1 Albina Sunshine Kristopher, CLERK ANALYST CLERK ANALYST kb5 Josselyn Langston,CORPORATE COMMUNICATIONS ASSOCIATE CORPORATE COMMUNICATIONS ASSOCIATE cp1 Vidya Lim RN RN ld5 Suzi TejedaRN RN [facility] Deyvi Tejeda, KALI PADutch cc10 Corrections: (The following items were deleted from the chart) 04/17 22:35 22:33 Presenting complaint: Patient states: Upper abdominal pain for last 4 hours--has mcp been getting worse mcp Chart Complete MTDD
--- NOTE | 2016-04-21 10:30 | EDDOCDS ---
Physician Documentation [facility] Name: Nuria Licea Age: 26 yrs Sex: Female : 1990 Arrival Date: 04/17/2016 Time: 22:23 Bed I4 / M4 Private MD: Amber Bliss Disposition: 04/18/16 02:15 Hospitalization ordered by Damian Morales for Observation. Preliminary diagnosis are Abdominal and pelvic pain - epigastric, Nausea and vomiting, Rhabdomyolysis. - Bed requested for Shanna Post/Ante . - Status is Observation. cp1 - Condition is Stable. - Problem is new. - Symptoms are unchanged. Historical: - Allergies: SULFA (SULFONAMIDES) (Hives); Zithromax; - Home Meds: 1. Lovenox 30 mg/0.3 mL Sub-Q syrg once daily 2. Oral 1 tablet daily - PMHx: Anxiety; - PSHx: none; - Social history: Smoking status: Patient states former smoker of tobacco. No barriers to communication noted, The patient speaks fluent Croatian. - Family history: Not pertinent. - : The pt / caregiver states he / she is on anticoagulants: Lovenox. Home medication list is obtained from the patient. - Exposure Risk Screening:: None identified. 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 6 in. (167.64 cm) (R); Pain 9/10; 04/18 00:26 BP 135 / 66; Pulse 108; Resp 22; Temp 100.7(T); Pulse Ox 97% on R/A; Pain 10/10; cp1 01:39 BP 118 / 74; Pulse 104; Resp 18; Temp 98.8(O); Pulse Ox 98% on R/A; ld5 02:49 BP 107 / 59; Pulse 99; Resp 16; Temp 99(O); Pulse Ox 97% on R/A; Pain 7/10; ld5 04/17 22:26 Body Mass Index 23.02 (64.68 kg, 167.64 cm) kb5 MDM: 04/17 23:36 Ondansetron 4 mg IVP once ordered. cc10 23:36 IV Saline Lock ordered. cc10 23:36 Undress patient appropriately for examination ordered. cc10 23:36 morphine 4 mg IVP once ordered. cc10 23:37 Basic Metabolic Profile Ordered. EDMS 23:37 CBC with Diff Ordered. EDMS 23:37 Cardiac Injury Profile Ordered. EDMS 23:37 Lipase Ordered. EDMS 23:37 Liver Profile Ordered. EDMS 23:37 Troponin Ordered. EDMS 23:37 Urinalysis Ordered. EDMS 23:37 Hcg, Serum Quantitative Ordered. EDMS 23:37 Urine Culture Ordered. EDMS 23:38 NOTHING BY MOUTH+DIET ordered. EDMS 23:49 Financial registration complete. zo 23:50 [facility] Payment Agreement was scanned into [employer] and attached to record. zo 04/18 00:18 Vital Signs ordered. cc10 00:18 CBC with Diff Reviewed. cc10 00:23 diphenhydrAMINE 25 mg IVP once ordered. cc10 00:24 morphine 2 mg IVP once ordered. cc10 00:26 US Abd complete Ordered. EDMS 01:03 Basic Metabolic Profile Reviewed. cc10 01:03 Cardiac Injury Profile Reviewed. cc10 01:03 Liver Profile Reviewed. cc10 01:03 Urinalysis Reviewed. cc10 01:03 Lipase Reviewed. cc10 01:03 Troponin Reviewed. cc10 01:03 Hcg, Serum Quantitative Reviewed. cc10 01:30 NS 0.9% 1000 ml IV at bolus once ordered. cc10 01:31 US Abd complete Reviewed. cc10 01:32 Vital Signs ordered. cc10 02:10 Metoclopramide 10 mg IV at 40 mg/hr once over 15 mins ordered. cc10 02:10 GI Cocktail - (Alum-Mag Hydroxide-Simeth 30 ml, Lidocaine 10 ml, Hyoscyamine 10 ml) PO cc10 once; Pre-mixed 50mL unit dose ordered. 02:17 BED REQUEST+ADM ordered. EDMS 02:32 MRI Screening Tool - Place on chart, inform RN ordered. cc10 02:41 Consents was scanned into [employer] and attached to record. cp1 02:44 MRI Screening Tool - Place on chart, inform RN complete. ld5 09:00 T-Sheet-- Draft Copy was scanned into [employer] and attached to record. gb Administered Medications: 04/17 23:58 Drug: morphine 4 mg Route: IVP; Site: right antecubital; [facility] 23:59 Drug: Ondansetron 4 mg Route: IVP; Site: right antecubital; [facility] 04/18 00:36 Drug: diphenhydrAMINE 25 mg [diphenhydramine 50 mg/mL injection solution (0.5 mL)] [facility] Route: IVP; Site: left antecubital; 01:17 Follow up: Response: Pain is decreased [facility] 00:36 Drug: morphine 2 mg Route: IVP; Site: left antecubital; [facility] 01:17 Follow up: Response: Pain is decreased cp1 01:39 Follow up: BP 118 / 74; Pulse 104 bpm; Resp 18 bpm; Temp 98.8 Oral; Pulse Ox 98% RA; ld5 Response: Confirmed pt not driving.; Pain is decreased 01:39 Drug: NS 0.9% 1000 ml [sodium chloride 0.9 % intravenous solution] Route: IV; Rate: ld5 bolus; Site: left antecubital; 02:58 Follow up: IV Status: Completed infusion; IV Intake: 1000ml ld5 02:16 Drug: Metoclopramide 10 mg [metoclopramide 5 mg/mL injection solution] Route: IV; Rate: ld5 40 mg/hr; Infused Over: 15 mins; Site: left antecubital; 02:44 Follow up: IV Status: Completed infusion ld5 02:44 Drug: GI Cocktail - (Alum-Mag Hydroxide-Simeth Suspension 225 mg-200 mg-25 mg/5 mL 30 ld5 ml, Lidocaine Liquid 2 % 10 ml, Hyoscyamine Liquid 10 ml) Route: PO; Signatures: Dispatcher [employer] EDJess Troy RN RN jan Peters, Mary, RN RN mcp Barnhardt, Gloria, Reg Reg gb Albina Sunshine Cheryl,BLUEPRINT PROCESSOR BLUEPRINT PROCESSOR cp1 Vidya Lim RN RN ld5 Suzi Tejeda RN RN [facility] Deyvi Tejeda PAFreddieC PA-C cc10 The chart was reviewed and I authenticate all verbal orders and agree with the evaluation and treatment provided.Attachments: 04/17 23:50 [facility] Payment Agreement zo 09:00 T-Sheet-- Draft Copy gb Chart Complete MTDD
--- NOTE | 2016-04-21 10:30 | EDDOCDS ---
Physician Documentation [facility] Name: Nuria Licea Age: 26 yrs Sex: Female : 1990 Arrival Date: 04/17/2016 Time: 22:23 Bed I4 / M4 Private MD: Amber Bliss Disposition: 04/18/16 02:15 Hospitalization ordered by Damina Morales for Observation. Preliminary diagnosis are Abdominal and pelvic pain - epigastric, Nausea and vomiting, Rhabdomyolysis. - Bed requested for Shanna Post/Ante . - Status is Observation. cp1 - Condition is Stable. - Problem is new. - Symptoms are unchanged. Historical: - Allergies: SULFA (SULFONAMIDES) (Hives); Zithromax; - Home Meds: 1. Lovenox 30 mg/0.3 mL Sub-Q syrg once daily 2. Oral 1 tablet daily - PMHx: Anxiety; - PSHx: none; - Social history: Smoking status: Patient states former smoker of tobacco. No barriers to communication noted, The patient speaks fluent Macedonian. - Family history: Not pertinent. - : The pt / caregiver states he / she is on anticoagulants: Lovenox. Home medication list is obtained from the patient. - Exposure Risk Screening:: None identified. AUTOMATIC HEMMER: 04/18 02:50 7, Full Term 0, Premature 0, 6, Living 0, LMP 02/16/2016, ld5 Verified, EDC 11/22/2016, Gestational age from LMP: 8 weeks 6 days Vital Signs: 04/17 22:26 BP 167 / 95; Pulse 135; Resp 24; Temp 97.1(O); Pulse Ox 99% on R/A; Weight 64.68 kg / kb5 142.59 lbs (M); Height 5 ft. 6 in. (167.64 cm) (R); Pain 9/10; 04/18 00:26 BP 135 / 66; Pulse 108; Resp 22; Temp 100.7(T); Pulse Ox 97% on R/A; Pain 10/10; cp1 01:39 BP 118 / 74; Pulse 104; Resp 18; Temp 98.8(O); Pulse Ox 98% on R/A; ld5 02:49 BP 107 / 59; Pulse 99; Resp 16; Temp 99(O); Pulse Ox 97% on R/A; Pain 7/10; ld5 04/17 22:26 Body Mass Index 23.02 (64.68 kg, 167.64 cm) kb5 MDM: 04/17 23:36 Ondansetron 4 mg IVP once ordered. cc10 23:36 IV Saline Lock ordered. cc10 23:36 Undress patient appropriately for examination ordered. cc10 23:36 morphine 4 mg IVP once ordered. cc10 23:37 Basic Metabolic Profile Ordered. EDMS 23:37 CBC with Diff Ordered. EDMS 23:37 Cardiac Injury Profile Ordered. EDMS 23:37 Lipase Ordered. EDMS 23:37 Liver Profile Ordered. EDMS 23:37 Troponin Ordered. EDMS 23:37 Urinalysis Ordered. EDMS 23:37 Hcg, Serum Quantitative Ordered. EDMS 23:37 Urine Culture Ordered. EDMS 23:38 NOTHING BY MOUTH+DIET ordered. EDMS 23:49 Financial registration complete. zo 23:50 [facility] Payment Agreement was scanned into [employer] and attached to record. zo 04/18 00:18 Vital Signs ordered. cc10 00:18 CBC with Diff Reviewed. cc10 00:23 diphenhydrAMINE 25 mg IVP once ordered. cc10 00:24 morphine 2 mg IVP once ordered. cc10 00:26 US Abd complete Ordered. EDMS 01:03 Basic Metabolic Profile Reviewed. cc10 01:03 Cardiac Injury Profile Reviewed. cc10 01:03 Liver Profile Reviewed. cc10 01:03 Urinalysis Reviewed. cc10 01:03 Lipase Reviewed. cc10 01:03 Troponin Reviewed. cc10 01:03 Hcg, Serum Quantitative Reviewed. cc10 01:30 NS 0.9% 1000 ml IV at bolus once ordered. cc10 01:31 US Abd complete Reviewed. cc10 01:32 Vital Signs ordered. cc10 02:10 Metoclopramide 10 mg IV at 40 mg/hr once over 15 mins ordered. cc10 02:10 GI Cocktail - (Alum-Mag Hydroxide-Simeth 30 ml, Lidocaine 10 ml, Hyoscyamine 10 ml) PO cc10 once; Pre-mixed 50mL unit dose ordered. 02:17 BED REQUEST+ADM ordered. EDMS 02:32 MRI Screening Tool - Place on chart, inform RN ordered. cc10 02:41 Consents was scanned into [employer] and attached to record. cp1 02:44 MRI Screening Tool - Place on chart, inform RN complete. ld5 09:00 T-Sheet-- Draft Copy was scanned into [employer] and attached to record. gb Administered Medications: 04/17 23:58 Drug: morphine 4 mg Route: IVP; Site: right antecubital; [facility] 23:59 Drug: Ondansetron 4 mg Route: IVP; Site: right antecubital; [facility] 04/18 00:36 Drug: diphenhydrAMINE 25 mg [diphenhydramine 50 mg/mL injection solution (0.5 mL)] [facility] Route: IVP; Site: left antecubital; 01:17 Follow up: Response: Pain is decreased [facility] 00:36 Drug: morphine 2 mg Route: IVP; Site: left antecubital; [facility] 01:17 Follow up: Response: Pain is decreased cp1 01:39 Follow up: BP 118 / 74; Pulse 104 bpm; Resp 18 bpm; Temp 98.8 Oral; Pulse Ox 98% RA; ld5 Response: Confirmed pt not driving.; Pain is decreased 01:39 Drug: NS 0.9% 1000 ml [sodium chloride 0.9 % intravenous solution] Route: IV; Rate: ld5 bolus; Site: left antecubital; 02:58 Follow up: IV Status: Completed infusion; IV Intake: 1000ml ld5 02:16 Drug: Metoclopramide 10 mg [metoclopramide 5 mg/mL injection solution] Route: IV; Rate: ld5 40 mg/hr; Infused Over: 15 mins; Site: left antecubital; 02:44 Follow up: IV Status: Completed infusion ld5 02:44 Drug: GI Cocktail - (Alum-Mag Hydroxide-Simeth Suspension 225 mg-200 mg-25 mg/5 mL 30 ld5 ml, Lidocaine Liquid 2 % 10 ml, Hyoscyamine Liquid 10 ml) Route: PO; Signatures: Dispatcher [employer] EDJess Troy RN RN jan Peters, Mary, RN RN mcp Barnhardt, Gloria, Reg Reg gb Albina Sunshine Cheryl,CURING PRESS OPERATOR CURING PRESS OPERATOR cp1 Vidya Lim RN RN ld5 Suzi Tejeda RN RN [facility] Deyvi Tejeda PAFreddieC PA-C cc10 The chart was reviewed and I authenticate all verbal orders and agree with the evaluation and treatment provided.Attachments: 04/17 23:50 [facility] Payment Agreement zo 09:00 T-Sheet-- Draft Copy gb Chart Complete MTDD
== END 2016-04-18 03:21 | disposition home or self-care (01) ==
LOC: M ED 22:23
DX: R10.84 Generalized abdominal pain (principal); R11.2 Nausea with vomiting, unspecified; F41.9 Anxiety disorder, unspecified; Z87.891 Personal history of nicotine dependence; Z79.01 Long term (current) use of anticoagulants; Z79.4 Long term (current) use of insulin; Z79.899 Other long term (current) drug therapy; Z88.2 Allergy status to sulfonamides; Z88.1 Allergy status to other antibiotic agents
CPT/HCPCS: 36415; 76700; 80048; 80076; 81001; 82550; 82553; 83690; 84702; 85025; 87086; 96361; 96374; 96375; 96376; 99285; J1200; J2405; J2765

== ENCOUNTER 2016-04-18 03:29 | Inpatient (IN) | payer OTHER ==
[~2016-04-18] VITALS: Ht 167.6 cm; Wt 64.7 kg
--- NOTE | 2016-04-18 03:01 | HPE ---
DATE OF ADMISSION: 04/18/2016 HISTORY: 26-year-old, (G) 7, para (P) 0 female at 9 weeks gestation by last menstrual period (LMP) presents with gradual onset of severe upper abdominal pain, which started on the evening of admission. The pain is 10/10 in severity. It is associated with extreme nausea and vomiting to the point where the patient was retching. She has had morning sickness for approximately the last 3 weeks on and off. She noted no morning sickness earlier in the day; however, when the pain started her nausea returned. She ate two meals earlier in the day prior to admission. She denies fevers. She has had occasional diarrhea. MEDICAL HISTORY: Anxiety. SURGICAL HISTORY: None. ALLERGIES: SULFA and ZITHROMAX. MEDICATIONS: - Lovenox 30 mg subcutaneously daily - vitamins SOCIAL HISTORY: The patient denies cigarettes, alcohol or drug use during . Father of the baby is supportive. PHYSICAL EXAMINATION: VITAL SIGNS: Blood pressure 167/95, pulse 135, respiratory rate 24, temperature 97.0. Maximum temperature (T-max) 100.7. Oxygen saturation 99% on room air. Weight 64 kg. The patient appears in significant pain. HEAD/NECK: Examination is normal. LUNGS: Clear. HEART: Regular rate and rhythm. ABDOMEN: Exquisitely tender in the upper abdomen with guarding present. No rebound. There are normal bowel sounds. PELVIC: Exam deferred. EXTREMITIES: Nontender. She has no costovertebral angle (CVA) tenderness. LABORATORIES: White blood count 7.4, creatinine 0.86. CPK 593. Hemoglobin 13.5 g/dL. Abdominal ultrasound normal gallbladder, normal liver and upper abdomen. ASSESSMENT: 26-year-old (G) 7, para (P) 0 female at 9 weeks gestation with severe upper abdominal pain and nausea, vomiting. Etiology of the pain is unclear. May be a component of hyperemesis. Patient will be admitted for intravenous (IV) hydration, as well as management of nausea and pain. Consideration given to imaging to rule out appendicitis as soon as this is feasible.
[~2016-04-18 03:29] MED LIST: LOVE1INJ2 SC; PREN1TAB14 PO
[2016-04-18 03:41] VITALS: BP 125/77
[2016-04-18] MEDS: LR 1,000 ML IV SCH ×2 (04:25→12:47)
[2016-04-18 06:36] VITALS: BP 119/78
--- NOTE | 2016-04-18 12:14 | REP ---
MRI study of the abdomen and pelvis without IV contrast: History: Abdominal pain question appendicitis. Comparison sonography showed no abnormality. Technique: Axial and coronal T1 and T2-weighted scans were obtained. Sequences include true FISP, spin echo, fat sat spin-echo, at T2 HASTE and turbo spin echo sequences. MRI findings: A single intrauterine gestation is seen in the gravid uterus. There is a septated cystic area in the right ovary consistent with corpus luteum measuring 4.6 cm in greatest diameter. This displays increased T1 and some decreased T2-weighted scans consistent with hemorrhagic corpus luteum. There is no evidence of pelvic or abdominal ascites. No hydronephrosis is seen on either side. No filling defect is noted in the gallbladder on T2-weighted scans to suggest biliary calculus. No liver or spleen lesion is observed. There is no evidence of adrenal lesion. The small and large bowel loops are unremarkable in the abdomen and pelvis. No pancreatic abnormality is observed. No retroperitoneal mass or adenopathy is seen. No evidence of pleural effusion. A normal non-inflamed appendix is believed to be visible in the central pelvis to the right of midline adjacent to the iliac vessels. There is no MR evidence of appendicitis. Impression: 4.5 cm hemorrhagic corpus luteum right ovary. No MR evidence to suggest appendicitis. No other acute intra-abdominal abnormality. No evidence of hydronephrosis. Signed by Rigo Ibanez MD 04/18/2016 02:06 P
[2016-04-18] MEDS: ONDANSETRON 4MG/2ML VIAL (J2405) IV PRN ×3 (12:46→21:42)
[2016-04-18] MEDS: MORPHINE 10 MG/ML 1ML VIAL IV PRN ×3 (12:46→18:43)
[2016-04-18 14:00] VITALS: BP 132/78
[2016-04-18] MEDS ORDERED: PROMETHAZINE INJ 25 MG/ML VIAL (J2550) IV PRN (18:00)
[2016-04-18] MEDS: KCL 20MEQ IN D5/0.45NS 1000ML 1,000 ML IV SCH (18:43)
[2016-04-18 19:00] VITALS: BP 160/80
[2016-04-18 19:40] VITALS: BP 174/99
[2016-04-18 19:50] VITALS: BP 162/104
[2016-04-18] MEDS: OMEPRAZOLE 20 MG CAP PO SCH (20:37)
[2016-04-18] MEDS ORDERED: FAMOTIDINE 20 MG TAB PO SCH (21:00)
[2016-04-18] MEDS ORDERED: ENOXAPARIN 30 MG/0.3 ML SYR (J1650) SC SCH (21:00)
[2016-04-18] MEDS: MORPHINE 4 MG/ML 1ML SYRINGE IV PRN (21:44)
[2016-04-19] VITALS: BP 158/100
[2016-04-19] MEDS: MORPHINE 4 MG/ML 1ML SYRINGE IV PRN (00:43)
[2016-04-19] MEDS: METOCLOPRAMIDE INJ 10MG/2ML VIAL (J2765) IV PRN ×3 (01:00→17:10)
[2016-04-19] MEDS: KCL 20MEQ IN D5/0.45NS 1000ML 1,000 ML IV SCH ×3 (02:34→18:25)
[2016-04-19 07:13] LABS: BASO % 0.5 % (0.0-1.0); EOS # 0.2 K/mm3 (0.0-0.50); EOS % 4.1 % (0.0-3.0); LARGE UNSTAINED CELL # 0.1 K/mm3 (0.0-0.4); LARGE UNSTAINED CELL % 2.3 % (0.0-4.0); LYMPH # 2.1 K/mm3 (1.5-6.5); LYMPH % 50.4 % (24.0-44.0); MEAN CORPUSCULAR HEMOGLOBIN 31.2 pg (27.0-33.0); MEAN CORPUSCULAR HGB CONC 35.1 g/dl (32.0-36.5); MEAN CORPUSCULAR VOLUME 88.9 fl (80.0-96.0); MONO # 0.2 K/mm3 (0.0-0.8); MONO % 4.1 % (0.0-5.0); NEUTROPHILS # 1.6 K/mm3 (1.8-7.7); NEUTROPHILS % 38.6 % (36.0-66.0); PLATELET COUNT, AUTOMATED 257 k/mm3 (150-450); RED CELL DISTRIBUTION WIDTH 11.8 % (11.5-14.5); WHITE BLOOD COUNT 4.2 K/mm3 (4.0-10.0)
[2016-04-19 07:26] LABS: ALBUMIN 3.3 GM/DL (3.2-5.2); ALBUMIN/GLOBULIN RATIO 1.14 (1.00-1.93); ALKALINE PHOSPHATASE 64 U/L (45-117); ALT/SGPT 36 U/L (12-78); ANION GAP 10 MEQ/L (8-16); AST/SGOT 46 U/L (15-37); BILIRUBIN,TOTAL 0.6 MG/DL (0.2-1.0); BLOOD UREA NITROGEN 4 MG/DL (7-18); CALCIUM LEVEL 8.3 MG/DL (8.5-10.1); CARBON DIOXIDE LEVEL 22 MEQ/L (21-32); CHLORIDE LEVEL 105 MEQ/L (98-107); CREATININE FOR GFR 0.65 MG/DL (0.55-1.02); GLOMERULAR FILTRATION RATE > 60.0 (>60); GLUCOSE, FASTING 97 MG/DL (70-105); POTASSIUM SERUM 3.7 MEQ/L (3.5-5.1); SODIUM LEVEL 137 MEQ/L (136-145); TOTAL PROTEIN 6.2 GM/DL (6.4-8.2)
[2016-04-19 08:00] VITALS: BP 170/113
[2016-04-19] MEDS: OMEPRAZOLE 20 MG CAP PO SCH ×2 (09:12→21:02)
[2016-04-19] MEDS: ACETAMINOPHEN 500 MG TAB PO PRN ×2 (09:22→17:11)
[2016-04-19] MEDS: LABETALOL 100 MG TAB PO SCH ×2 (10:46→21:02)
[2016-04-19] MEDS: SUCRALFATE SUSP 1GM/10ML UD PO SCH ×2 (12:19→18:24)
[2016-04-19 16:00] VITALS: BP 123/81
[2016-04-19 19:40] VITALS: BP 142/93
[2016-04-19 21:00] VITALS: BP 132/91
[2016-04-20] VITALS: BP 127/80
[2016-04-20] MEDS: SUCRALFATE SUSP 1GM/10ML UD PO SCH ×2 (00:01→06:07)
[2016-04-20] MEDS: KCL 20MEQ IN D5/0.45NS 1000ML 1,000 ML IV SCH ×2 (01:46→09:18)
[2016-04-20 08:15] VITALS: BP 127/80
[2016-04-20 09:10] VITALS: BP 127/80
[2016-04-20] MEDS: OMEPRAZOLE 20 MG CAP PO SCH (09:10)
[2016-04-20] MEDS: LABETALOL 100 MG TAB PO SCH (09:10)
[2016-04-20] MEDS ORDERED: LABE10TAB PO (10:33)
[2016-04-20] MEDS ORDERED: ZOFR20TA PO (10:33)
[2016-04-20] MEDS ORDERED: PRIL40CA PO (10:33)
[2016-04-20] MEDS ORDERED: TYLE500T78 PO (10:33)
--- NOTE | 2016-05-04 10:15 | DSES ---
DATE OF ADMISSION: 04/18/2016 DATE OF DISCHARGE: 04/20/2016 26-year-old G7, P0 female at 9 weeks gestation presents with gradual to severe upper abdominal pain which started the evening of admission. Pain was 10 out of 10 in severity. It was associated with extreme nausea and vomiting to the point where the patient was retching. She also had morning sickness on and off for the last 3 weeks, however, had no morning sickness or earlier in the day. HOSPITAL COURSE: Patient was admitted on 04/18/2016 with intractable nausea and vomiting and upper abdominal pain. She received IV hydration, antiemetics, she received Prilosec as well as sucralfate for possible peptic ulcer disease. During the course of hospitalization, her pain improved. She had imaging consisting of an MRI to rule out appendicitis which was negative. Electrolytes continued to be stable. On hospital day #3, she was able to tolerate small amounts of solid food as well as liquids with minimal nausea and no pain. She was deemed stable for discharge on day #3. ADMISSION DIAGNOSES: 9 weeks. Hyperemesis. Possible peptic ulcer disease. DISCHARGE DIAGNOSES: 9 weeks. Hyperemesis. Possible peptic ulcer disease. DISPOSITION: Patient will followup with Dr. Morales in 1 week. Patient will continue Prilosec, was given dietary restrictions.
== END 2016-04-20 11:50 | disposition home or self-care (01) | DRG 781 ==
LOC: M LDO 03:29 → M PED 18:10 → M LDO 18:42
PROVIDERS: ADMIT Advanced Practice Midwife; ATTEND Specialist
DX: O21.0 Mild hyperemesis gravidarum (principal); Z3A.09 9 weeks gestation of pregnancy; O99.611 Diseases of the digestive system complicating pregnancy, first trimester; K27.9 Peptic ulcer, site unspecified, unspecified as acute or chronic, without hemorrhage or perforation

== ENCOUNTER → 2016-06-02 | Day surgery (SDC) | payer OTHER ==
[~2016-06-02] VITALS: Ht 167.6 cm; Wt 66.0 kg
[~2016-06-02] MED LIST changes: +ACETAMINOPHEN 500 MG TAB PO PRN; +KETOROLAC 60 MG/2 ML VIAL (J1885) As Ordered ONE; +LABE10TAB PO; +LIDOCAINE 1% SDV INJ 30 ML VIAL As Ordered ONE; +LIDOCAINE 2% INJ 100 MG/5 ML SYRINGE As Ordered ONE; +LR 1,000 ML IV SCH; +MEPERIDINE INJ 25 MG/ML VIAL (J2175) IV PRN; +METHYLERGONOVINE MALEATE 0.2 MG/ML VIAL (J2210) As Ordered ONE; +METHYLERGONOVINE MALEATE 0.2 MG/ML VIAL (J2210) IV ONE; +METOCLOPRAMIDE INJ 10MG/2ML VIAL (J2765) IV PRN; +MIDAZOLAM INJ 2 MG/2 ML VIAL (J2250) As Ordered ONE; +ONDANSETRON 4MG/2ML VIAL (J2405) As Ordered ONE; +ONDANSETRON 4MG/2ML VIAL (J2405) IV PRN; +OXYC1TAB23 PO; +OXYTOCIN 30 UNITS IN 0.9% NaCl 500ML IV BAG (J2590) As Ordered ONE; +OXYTOCIN INJ 10 UNITS/ML VIAL (J2590) As Ordered ONE; +PRIL40CA PO; +PROPOFOL 200 MG/20 ML VIAL As Ordered ONE; +TYLE500T78 PO; +ZOFR20TA PO; +ceFAZolin 1GM INJ (J0690) As Ordered ONE; +ceFAZolin SOD 1 GM in D5W MINI-BAG PLUS 50 ML IV ONE; +ePHEDrine SULFATE 25 MG/5 ML(5MG/ML) SYRINGE As Ordered ONE; +fentaNYL 100 MCG/2 ML INJECTION (J3010) As Ordered ONE; +miSOPROStol 200 MCG TAB (S0191) As Ordered ONE
[2016-06-02 14:10] LABS: MEAN CORPUSCULAR HEMOGLOBIN 31.9 pg (27.0-33.0); MEAN CORPUSCULAR HGB CONC 35.3 g/dl (32.0-36.5); MEAN CORPUSCULAR VOLUME 90.4 fl (80.0-96.0); RED CELL DISTRIBUTION WIDTH 12.5 % (11.5-14.5); WHITE BLOOD COUNT 12.2 K/mm3 (4.0-10.0)
[2016-06-02] MEDS: miSOPROStol 200 MCG TAB (S0191) PR ONE ×2 (17:27→18:15)
[2016-06-02] MEDS: fentaNYL 100 MCG/2 ML INJECTION (J3010) IV PRN ×4 (18:05→18:20)
[2016-06-02] MEDS: PERCOCET 5MG/325MG TAB PO PRN ×2 (18:10→18:30)
[2016-06-02 20:30] VITALS: BP 108/85
--- NOTE | 2016-06-03 08:59 | RO ---
DATE OF PROCEDURE: 06/02/2016 PREPROCEDURE DIAGNOSIS: 15 and 2/7 weeks gestation, spontaneous rupture of membranes. POSTPROCEDURE DIAGNOSIS: 15 and 2/7 weeks gestation, spontaneous rupture of membranes. PROCEDURE: Dilatation and evacuation under ultrasound guidance. SURGEON: Damian Morales MD PROJECT PRODUCTION ENGINEER: ANESTHESIA: General endotracheal. ESTIMATED BLOOD LOSS: 500 mL. FINDINGS: 15 week sized fetus and placenta, normal endometrial stripe at the end of the procedure. Five laminary and one sponge accounted for at the beginning of the procedure. DESCRIPTION OF PROCEDURE: The patient was taken to the operating room where general anesthesia was induced. She was prepped and draped in a sterile fashion in the dorsal lithotomy position. One sponge and five laminary removed. Speculum was placed. The anterior lip of the cervix was grasped with a tenaculum. The cervix was dilated with taper dilators under ultrasound guidance. Ultrasound guidance was used throughout the procedure. A #16 mm suction curette was placed through the internal os. Suction device was activated and curette gently rotated until products of conception were noted coming through the suction tubing. Large Sac forceps were used to grasp tissue under ultrasound guidance. All parts were accounted for. Sharp curettage was performed. Moderate uterine atony was encountered. This was treated with Methergine 0.2 mg intramuscularly, as well as Cytotec 800 mcg per rectum. Bleeding had stopped prior to the end of the procedure. Sponge and instrument counts were correct. The patient went to the recovery room in stable condition.
== END | disposition home or self-care (01) ==
LOC: M SDC 13:37
PROVIDERS: ATTEND Specialist
DX: O02.1 Missed abortion (principal); Z79.899 Other long term (current) drug therapy; I10 Essential (primary) hypertension; Z88.2 Allergy status to sulfonamides
CPT/HCPCS: 36415; 59821; 85027; 88233; 88262; 88291; 88305; J0690; J1885; J2210; J2250; J2405; J3010